=== PATIENT | male | born 1990 | race Caucasian/White ===

== ENCOUNTER 2019-12-26 01:33 | Emergency (ER) | payer MEDICAID ==
[~2019-12-26] VITALS: Ht 188 cm; Wt 113.0 kg
[2019-12-26 01:49] VITALS: BP 141/88
== END 2019-12-26 03:23 | disposition left against medical advice (07) ==
LOC: ER 01:33
DX: Z53.21 Procedure and treatment not carried out due to patient leaving prior to being seen by health care provider (principal)